=== PATIENT | male | born 1965 | race Caucasian/White ===

== ENCOUNTER 2025-05-29 10:15 | Day surgery (SDC) | payer OTHER ==
[~2025-05-29] VITALS: Ht 185.4 cm; Wt 101.3 kg
[~2025-05-29 10:15] MED LIST: HYDMOR2 PO; POLYTRIM EYE DR10 M1 LEFTEYE; RXHYDMOR2 PO
[2025-05-29] MEDS ORDERED: Midazolam HCl 1MG / ML 2ML Vial ONE (10:31)
[2025-05-29] MEDS ORDERED: FentaNYL Citrate 50 MCG/ML 2 ML Injection ONE ×2 (10:31→15:00)
[2025-05-29] MEDS ORDERED: Tranexamic Acid 100 ML IV ONE (10:40)
[2025-05-29] MEDS ORDERED: CeFAZolin Sodium 2,000 MG VIAL ONE (10:40)
[2025-05-29] MEDS ORDERED: PENVK250 PO (10:43)
[2025-05-29] MEDS ORDERED: Bupivacaine 0.5% HCl 5 MG/ML 30MLVIAL ONE (11:43)
--- NOTE | 2025-05-29 12:01 | NUR ---
05/29/25 1201 Pearl Alvarado TIME OUT PERFORMED AT BEDSIDE WITH DR STALEY AT 1145. TXA STARTED PER DR STALEY AT 1149. NERVE BLOCK STARTED AT 1149 AND ENDED AT 1153. PT TOLERATED PROCEDURE WELL.
[2025-05-29] MEDS ORDERED: Rocuronium Bromide 10 MG/ML 5ML Injection IV ONE (12:03)
[2025-05-29] MEDS ORDERED: Dexamethasone Sod Phos 10 MG/ML 1ML VIAL ONE (13:41)
[2025-05-29] MEDS ORDERED: Sugammadex Sodium 200 MG/2ML SDV (100 MG/ML) ONE (13:41)
[2025-05-29] MEDS ORDERED: Ondansetron HCl 2 MG / ML 2ML Vial ONE (13:41)
--- NOTE | 2025-05-29 14:03 | NUR ---
05/29/25 1403 Amy Guzman REPORT RECEIVED FROM WILDER AND RN. RIGHT RADIAL PULSE PALPABLE, STRONG. FINGER CAP REFILL <3 SECONDS, RIGHT FINGERS PINK, WARM, DRY. PT AROUSABLE TO VOICE. FOLLOWS COMMANDS AND ANSWERS QUESTIONS. VSS. PT DENIES PAIN OR NAUSEA. DRESSING CDI.
--- NOTE | 2025-05-29 14:25 | NUR ---
05/29/25 1425 Amy Guzman PT PLACED IN RECLINER, POLAR PACK IN PLACE AND HOOKED UP. RIGHT ARM ELEVATED ON PILLOW. VSS. PT TOLERATING ORAL FLUIDS
[2025-05-29 15:31] VITALS: BP 131/85
== END 2025-05-29 15:58 | disposition home or self-care (01) ==
LOC: ORSCSDS 10:15
PROVIDERS: Orthopaedic Surgery Sports Medicine
PROC: 0RNJ4ZZ Release Right Shoulder Joint, Percutaneous Endoscopic Approach (ICD-10-PCS; principal; 2025-05-29 12:30)
PROC: 0PB94ZZ Excision of Right Clavicle, Percutaneous Endoscopic Approach (ICD-10-PCS; principal; 2025-05-29 12:30)
PROC: 0LS34ZZ Reposition Right Upper Arm Tendon, Percutaneous Endoscopic Approach (ICD-10-PCS; principal; 2025-05-29 12:30)
PROC: 0LQ14ZZ Repair Right Shoulder Tendon, Percutaneous Endoscopic Approach (ICD-10-PCS; principal; 2025-05-29 12:30)
DX: M75.111 Incomplete rotator cuff tear or rupture of right shoulder, not specified as traumatic (principal); M75.21 Bicipital tendinitis, right shoulder; M12.811 Other specific arthropathies, not elsewhere classified, right shoulder; X50.0XXA Overexertion from strenuous movement or load, initial encounter; I10 Essential (primary) hypertension; F41.9 Anxiety disorder, unspecified; F32.A Depression, unspecified
CPT/HCPCS: A9270; C1713; J0165; J0166; J0690; J1100; J2250; J2405; J2704; J3010; J7120